=== PATIENT | male | born 1935 | race Caucasian/White ===

== ENCOUNTER → 2016-08-20 | Outpatient (CLI) | payer OTHER ==
--- NOTE | 2016-08-21 13:17 | Diagnostic Imaging Report ---
Indication: COUGH Technique: Two views of the chest Comparison: none Findings: Surgical clips are seen in the anterior chest wall to the left of midline. There is some atelectasis at the left lung base. Lungs and pleural space are otherwise clear. Heart size is normal. Aorta is tortuous and calcified Impression: No acute process. Findings as noted
== END | disposition home or self-care (01) ==
LOC: RAD 17:06
DX: R05 Cough (principal)
CPT/HCPCS: 71020